=== PATIENT | male | born 1985 | race Caucasian/White ===

== ENCOUNTER 2024-12-17 10:47 | Inpatient (IN) | payer MEDICAID, SELFPAY ==
[2024-12-17 10:58] VITALS: BP 150/85; PULSE 88; TEMP 36.5; O2SAT 97; BMI 29.0
--- NOTE | 2024-12-17 10:58 | W.ED.PSYCHS ---
HPI - Psych General: Chief Complaint: Psychiatric Symptoms Stated Complaint: 96 Hold Time Seen by Provider: 12/17/24 10:50 Source: patient Mode of arrival: other (police) Limitations: no limitations History of Present Illness: Patient is a 39-year-old male who presents to ED today brought by police on a 96-hour hold for mental health evaluation. Patient states he is not sure why he is here who filed a 96-hour hold. He states he has had depression and suicidal ideations for quite some time. He has been reportedly seen in the crisis center and is made a safety plan with them to move out of his current residence and into his cousin's house and feels safe with this current plan. He states he has a history of PTSD but does not take medications for this. He reportedly wants to move to [place] in the near upcoming future. He does reportedly not get along with his parents and has made statements that he wants to if he has to continue to deal with them. He does have previous suicide attempts. I did not inquire about alcohol or drug use history. As previously stated, he arrives on a 96-hour hold with an affidavit from [facility] employee. According to the affidavit patient was severely agitated and did not respond to de-escalation mechanisms and made several statements including I want to end my life every day because I cannot get help and I have suicidal thoughts every day . He also was exhibiting paranoid type behavior. He made several homicidal statements stating that he wanted to crack the heads open of his family members and spoke about killing them. MD complaint: suicidal ideation Associated psychiatric symptoms: none Associated symptoms: Deny auditory hallucinations, visual hallucinations, depression, homicidal ideation or suicidal ideation Treatments prior to arrival: placed on mental health hold Related Data Allergies Allergy/AdvReac Type Severity Reaction Status Date / Time No Known Allergies Allergy Verified 12/17/24 11:01 Review of Systems Const: Denies: fever(s) or chills Card: Denies: chest pain, palpitations, lightheadedness or syncope Resp: Denies: dyspnea GI: Denies: abdominal pain, nausea, vomiting or diarrhea Skin/Breast: Denies: rash Neuro: Denies: headache(s) Psych: Reports: irritability; Denies: anxiety, depression, visual hallucinations, auditory hallucinations, suicidal ideation or homicidal ideation [facility] ED PFSH: Medical History Psychiatric care Physical Exam Const: COMMON NORMALS: no acute distress, patient oriented x3, alert and well nourished GENERAL APPEARANCE: cooperative and well kempt Resp: COMMON NORMALS: normal respiratory effort and clear to auscultation bilaterally AUSCULTATION: clear to auscultation bilaterally Cardio: COMMON NORMALS: regular rate and regular rhythm RATE: regular rate RHYTHM: regular rhythm Neuro: COMMON NORMALS: patient oriented x3 SENSORIUM/ORIENTATION: Yes alert Psych: COMMON NORMALS: mental status grossly normal, Normal thought process present, cooperative, normal affect, speech normal, activity/motor behavior normal and denies hallucinations APPEARANCE: Yes grossly normal and Yes well kempt ATTITUDE: Yes agitated ACTIVITY/MOTOR BEHAVIOR: Yes appropriate eye contact and No psychomotor agitation SPEECH: Yes normal speech MOOD & AFFECT: Yes euthymic mood THOUGHT PROCESS: Normal thought process present THOUGHT CONTENT: Yes Normal thought content present ATTENTION/CONCENTRATION: Yes attention grossly intact and Yes concentration grossly intact MEMORY/COGNITION: Yes memory grossly intact and Yes cognition grossly intact INSIGHT: Fair insight present (Psych) JUDGEMENT: Fair judgement present (Psych) Course Consultations: Consultation #1: Dr. Johnson-accepts to NPU Vital Signs: Vital signs: Vital Signs Temperature 97.7 F 12/17/24 10:58 Pulse Rate 88 12/17/24 10:58 Blood Pressure 150/85 12/17/24 10:58 Pulse Oximetry 97 12/17/24 10:58 Oxygen Delivery Me thod Room Air 12/17/24 10:58 [facility] - Psych Medical Decision Making Patient being admitted to NPU to Dr. Johnson. He is on a 96 hour hold. Medical Records I reviewed the patient's medical records. Lab Data I reviewed the patient's lab results. 12/17/24 11:17 12/17/24 11:17 Laboratory Results WBC 5.65 10^3/uL (3.29-11.43) 12/17/24 11:17 RBC 5.11 10^6/uL (3.85-5.65) 12/17/24 11:17 Hgb 16.30 g/dL (11.27-16.99) 12/17/24 11:17 Hct 48.3 % (37-53) 12/17/24 11:17 MCV 94.5 fl (82-101) 12/17/24 11:17 MCH 31.9 pg (27-33) 12/17/24 11:17 MCHC 33.7 g/dL (30-55) 12/17/24 11:17 RDW 11.8 % (12.1-15.1) L 12/17/24 11:17 Plt Count 202 10^3/cmm (157-399) 12/17/24 11:17 MPV 9.9 fL (7.4-10.4) 12/17/24 11:17 Neut % (Auto) 68.1 % 12/17/24 11:17 Lymph % (Auto) 25.3 % 12/17/24 11:17 [place] % (Auto) 4.6 % 12/17/24 11:17 Eos % (Auto) 1.1 % 12/17/24 11:17 Baso % (Auto) 0.5 % 12/17/24 11:17 Neut # (Auto) 3.85 10^3/uL (1.8-7.7) 12/17/24 11:17 Lymph # (Auto) 1.4 10^3/uL (0.8-4.8) 12/17/24 11:17 [place] # (Auto) 0.3 10^3/uL (0.2-0.9) 12/17/24 11:17 Eos # (Auto) 0.1 10^3/uL (0.0-0.8) 12/17/24 11:17 Baso # (Auto) 0.0 10^3/uL (0.0-0.1) 12/17/24 11:17 Nucleated RBC % (auto) 0 % 12/17/24 11:17 Nucleated RBCs # 0.0 /100WBC 12/17/24 11:17 Sodium 140 mmol/L (136-145) 12/17/24 11:17 Potassium 3.8 mmol/L (3.5-5.1) 12/17/24 11:17 Chloride 103 mmol/L (98-107) 12/17/24 11:17 Carbon Dioxide 24 mmol/L (22-29) 12/17/24 11:17 Anion Gap 16.8 (5-19) 12/17/24 11:17 BUN 9 mg/dL (6-20) 12/17/24 11:17 Creatinine 0.9 mg/dL (0.7-1.2) 12/17/24 11:17 GFR Calculation 95.0 mL/min (90-130) 12/17/24 11:17 Glucose 141 mg/dL (65-115) H 12/17/24 11:17 Calculated Osmolality 291 mOsm/kg (285-295) 12/17/24 11:17 Calcium 9.4 mg/dL (8.5-10.5) 12/17/24 11:17 Total Bilirubin 1.2 mg/dL (0.15-1.2) 12/17/24 11:17 AST 15 U/L (0-40) 12/17/24 11:17 ALT 20 U/L (0-41) 12/17/24 11:17 Alkaline Phosphatase 81 U/L (40-130) 12/17/24 11:17 Total Protein 7.2 g/dL (6.6-8.7) 12/17/24 11:17 Albumin 4.4 g/dL (3.5-5.2) 12/17/24 11:17 Globulin 2.8 g/dL (1.3-4.6) 12/17/24 11:17 Salicylates < 0.3 mg/dL (3-10) L 12/17/24 11:17 Acetaminophen < 5.0 ug/mL (10-30) L 12/17/24 11:17 Ethyl Alcohol < 10 mg/dL (0-10) 12/17/24 11:17 No radiology studies performed this visit Discharge Plan Discharge Patient Disposition: Admitted As Inpatient Clinical Impression: Suicidal ideation, Homicidal ideation, Involuntary commitment Condition: Stable Coding Level of Care Code 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
[2024-12-17 11:27] LABS: Basophils % 0.5 %; Eosinophils # 0.1 10^3/uL (0.0-0.8); Eosinophils % 1.1 %; Hematocrit 48.3 % (37-53); Lymphocytes # 1.4 10^3/uL (0.8-4.8); Lymphocytes % 25.3 %; Mean Corpuscular HGB Conc 33.7 g/dL (30-55); Mean Corpuscular Hemoglobin 31.9 pg (27-33); Mean Corpuscular Volume 94.5 fl (82-101); Mean Platelet Volume 9.9 fL (7.4-10.4); Monocytes # 0.3 10^3/uL (0.2-0.9); Monocytes % 4.6 %; Neutrophils # 3.85 10^3/uL (1.8-7.7); Neutrophils % 68.1 %; Nucleated Red Blood Cells % 0 %; Platelet Count 202 10^3/cmm (157-399); Red Blood Count 5.11 10^6/uL (3.85-5.65); Red Cell Distribution Width 11.8 % (12.1-15.1); White Blood Count 5.65 10^3/uL (3.29-11.43)
[2024-12-17 11:43] LABS: Alanine Aminotransferase 20 U/L (0-41); Albumin Level 4.4 g/dL (3.5-5.2); Alkaline Phosphatase 81 U/L (40-130); Anion Gap 16.8 (5-19); Aspartate Amino Transferase 15 U/L (0-40); Blood Urea Nitrogen 9 mg/dL (6-20); Calcium 9.4 mg/dL (8.5-10.5); Carbon Dioxide 24 mmol/L (22-29); Chloride 103 mmol/L (98-107); Creatinine Clr Calc Pharmacy 139.6477; Globulin 2.8 g/dL (1.3-4.6); Glucose 141 mg/dL (65-115); Osmolality Calculated 291 mOsm/kg (285-295); Potassium 3.8 mmol/L (3.5-5.1); Sodium 140 mmol/L (136-145); Total Bilirubin 1.2 mg/dL (0.15-1.2); Total Protein 7.2 g/dL (6.6-8.7)
[2024-12-17 11:47] LABS: Acetaminophen < 5.0 ug/mL (10-30); Alcohol Level < 10 mg/dL (0-10); Salicylate < 0.3 mg/dL (3-10)
[2024-12-17 12:12] LABS: Amphetamines Screen Urine Negative (Negative); Barbiturates Screen Urine Negative (Negative); Benzodiazepines Screen Urine Negative (Negative); Cocaine Screen Urine Negative (Negative); Opiate Screen Urine Negative (Negative); PCP Screen Urine Negative (Negative); THC Screen Urine Positive (Negative)
[2024-12-17 12:45] VITALS: BP 144/82; PULSE 73; O2SAT 97
[2024-12-17 13:05] VITALS: BP 130/91; PULSE 71; RESP 18; TEMP 36.8; O2SAT 98
[2024-12-17 14:00] VITALS: BP 131/97; PULSE 83; RESP 18; TEMP 36.9; O2SAT 97
[2024-12-17] MEDS: nicotine 2 mg Gum BUCCAL ×2 (14:03→21:00)
[2024-12-17] MEDS: hyDROXYzine 25 mg Capsule 50 MG PO (14:03)
[2024-12-17] MEDS: ibuprofen 600 mg Tablet PO (14:03)
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
--- NOTE | 2024-12-17 19:56 | PC.NURSE ---
96 hr rights reviewed with patient @1100 with assistance of [facility] labor relations officer Yefri. All education reviewed. Pt verbalized understanding to hold details. Pt copy left with patient. Pt provided water. No further verbalized needs
[2024-12-17] MEDS: trazodone 50 mg Tablet PO ×2 (21:00→22:29)
[2024-12-17] MEDS: haloperidol 5 mg Tablet PO (21:00)
[2024-12-17 21:01] VITALS: BP 136/101; PULSE 82; RESP 18; TEMP 36.7; O2SAT 97
[2024-12-18 06:00] VITALS: BP 102/58; PULSE 72; RESP 16; TEMP 36.6; O2SAT 96
[2024-12-18] MEDS: ibuprofen 600 mg Tablet PO (08:21)
[2024-12-18] MEDS: nicotine 2 mg Gum BUCCAL ×2 (08:23→20:09)
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
[2024-12-18] MEDS: hyDROXYzine 25 mg Capsule 50 MG PO ×2 (11:34→20:10)
[2024-12-18 14:00] VITALS: BP 117/75; PULSE 75; RESP 16; TEMP 36.7; O2SAT 97
[2024-12-18] MEDS: quetiapine 25 mg Tablet 50 MG PO (20:09)
[2024-12-18] MEDS: trazodone 50 mg Tablet PO (20:10)
[2024-12-18 20:27] VITALS: BP 133/87; PULSE 70; RESP 17; TEMP 36.3; O2SAT 99
--- NOTE | 2024-12-18 21:02 | PC.NURSE ---
IN BED RESTING. DENIES SI/HI AND AVH AT THIS TIME. DENIES PAIN. RATES ANXIETY AND DEPRESSION 04/15. VISTARIL 50 MG GIVEN ORDERED FOR ANXIETY. TRAZODONE 50 MG GIVEN FOR INSOMNIA. PT IS NOTED TO HAVE FLAT AFFECT AND DEPRESSED MOOD. SUPPORT VOICED.
[2024-12-19 06:00] VITALS: BP 118/75; PULSE 74; RESP 18; TEMP 36.5; O2SAT 98
[2024-12-19] MEDS: nicotine 2 mg Gum BUCCAL (11:03)
[2024-12-19] MEDS: hyDROXYzine 25 mg Capsule 50 MG PO (12:45)
[2024-12-19 13:00] VITALS: BP 118/75; PULSE 74; RESP 18; TEMP 36.5; O2SAT 98
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
== END 2024-12-19 16:17 | disposition home or self-care (01) | DRG 885 ==
LOC: ER 11:33 → NP 12:38
PROVIDERS: Admitting Provider Psychiatry & Neurology Psychiatry; Emergency Provider Physician Assistant; Family Provider Family Medicine; Visit Provider Psychiatry & Neurology Psychiatry
DX: F33.2 Major depressive disorder, recurrent severe without psychotic features (principal); R45.851 Suicidal ideations; F43.12 Post-traumatic stress disorder, chronic; R45.850 Homicidal ideations; F12.90 Cannabis use, unspecified, uncomplicated; Z72.0 Tobacco use
CPT/HCPCS: 36415; 80053; 80306; 80307; 85025; 97150; 97165; 99285

== ENCOUNTER → 2025-02-26 10:41 | Outpatient (BNVA) | payer OTHER, SELFPAY | PROVIDERS: Family Provider Family Medicine; Visit Provider Psychiatry & Neurology Psychiatry | DX: F33.2 Major depressive disorder, recurrent severe without psychotic features (principal); F43.12 Post-traumatic stress disorder, chronic; Z79.899 Other long term (current) drug therapy | CPT/HCPCS: 80061; 83036 ==

== ENCOUNTER 2025-10-28 12:50 | Emergency (ER) | payer MEDICAID, SELFPAY ==
[2025-04-29 11:39] VITALS: BP 129/89; BMI 29.1
[2025-10-28 12:56] VITALS: BP 111/76; PULSE 82; RESP 16; TEMP 36.7; O2SAT 96; BMI 29.0
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
--- NOTE | 2025-10-28 13:11 | W.ED.EXTPRO ---
HPI - Extremity Problem General: Chief complaint: Extremity Injury, Lower Stated complaint: right leg wound Time Seen by Provider: 10/28/25 13:10 Source: patient Mode of arrival: ambulatory Limitations: no limitations History of Present Illness: Patient is a 40-year-old male presents emergency department complaining of injury to right escalante earlier this morning around 0330. States that he was working in the [employer] and he tripped and believes he struck his right anterior escalante on a drain pipe, causing superficial puncture laceration with controlled bleeding at this time. His tetanus is not up-to-date. States that he has pain underlying the laceration and thinks he at least bruised his bone, and the pain radiates to the right posterior calf. Is able to ambulate without difficulty, vital stable he does not report any other injury at this time. MD Complaint: extremity pain Onset (ago): hour(s) Pain Consistency: constant Location: right and lower extremity (esaclante) Associated symptoms: Deny chest pain, fever(s) or rash Related Data Previous Rx's ?Medication ?Instructions ?Recorded fluoxetine 20 mg capsule (Prozac) 20 mg PO .morning #30 caps 04/11/25 fluoxetine 40 mg capsule 40 mg PO QAM #30 caps 07/16/25 quetiapine 25 mg tablet (Seroquel) 25 mg PO BEDTIME PRN insomnia #60 07/16/25 tabs Allergies Allergy/AdvReac Type Severity Reaction Status Date / Time No Known Allergies Allergy Verified 07/16/25 12:49 Review of Systems General: Reports: 10 or more systems reviewed and unremarkable except in HPI and below Const: Denies: fever(s) or chills Card: Denies: chest pain Resp: Denies: dyspnea GI: Denies: abdominal pain, nausea, vomiting or diarrhea Musc: Reports: extremity pain (right escalante); Denies: extremity swelling, joint pain, joint swelling, joint redness, joint warmth or limited range of motion Skin/Breast: Reports: skin tenderness and new lesions (laceration right escalante); Denies: rash Neuro: Denies: headache(s) [facility] ED PFSH: Medical History Major depressive disorder, recurrent severe without psychotic features Cannabis dependence Nicotine dependence due to vaping tobacco product Chronic post-traumatic stress disorder Psychiatric care Family History Other Cancer Depression Heart disease Social History Smoking and tobacco/nicotine status: current every day tobacco/nicotine user e-cigarettes E-Cigarette Details: e-cigarette and with nicotine E-cig/vape details: 20,000 takes about 3 - 4 weeks to go through it Quit status (tobacco/nicotine): not considering quitting Second hand smoke exposure: No Alcohol intake: current Alcohol intake frequency: few times a week Alcohol type: hard liquor Substance/Drug Use: current Substance/Drug use frequency: few times a week Adopted: No Caregiver/support person: No Lives independently: Yes Household members: family and none Housing: House Marital status: Number of children: 0 Highest education level completed: Some College, No Degree service: No Current occupational status: unemployed Pets and animals: No Leisure activites: art, games and reading Sexually active: No Do you think of yourself as: Straight/Heterosexual Current gender identity: Male Roya/Bahai: Other Special roya needs: No Agree to transfusion: Yes Physical Exam Const: COMMON NORMALS: no acute distress, patient oriented x3, no limitations, healthy appearing, alert and well nourished HENMT: COMMON NORMALS: normocephalic and atraumatic HEAD & SCALP: normocephalic and atraumatic Neck/C-Spine: COMMON NORMALS: full ROM, supple and no meningeal signs Extremity: COMMON NORMALS: full ROM, capillary refill normal, no joint enlargement and no clubbing, cyanosis or edema NARRATIVE EXTREMITY EXAM: Tender to palpation right anterior escalante, no bruising or swelling Neuro: COMMON NORMALS: patient oriented x3, moves all extremities, no focal motor deficits and no sensory deficits noted SENSORIUM/ORIENTATION: Yes alert MENINGEAL SIGNS: Yes no meningeal signs Skin: NARRATIVE SKIN EXAM: Small 1 cm superficial laceration right anterior escalante with controlled bleeding, no foreign body or contamination noted at this time Course Vital Signs: Vital signs: Vital Signs Temperature 98.1 F 10/28/25 12:56 Pulse Rate 82 10/28/25 12:56 Respiratory Rate 16 10/28/25 12:56 Blood Pressure 111/76 10/28/25 12:56 Pulse Oximetry 96 10/28/25 12:56 Oxygen Delivery Me thod Room Air 10/28/25 12:56 MDM - Extremity (Nontraumatic) Medical Decision Making Patient presented after injuring his right lower leg last night, believes that he struck his right escalante on a drain pipe. Presented with superficial laceration that is cleaned and Steri-Strip applied here, did not appear to require any further closure of sutures and patient stated he preferred Steri-Strips. The x-ray was negative for any underlying fracture suspect contusion here with the associated abrasive type laceration and his tetanus is updated for this purpose. Stable for discharge at this time with symptomatic therapy discussed. Lab Data Radiology Impressions Tibia/Fibula X-Ray 10/28/25 13:10 Impression: Negative for fracture. All radiology interpretation(s) finalized by discharge Discharge Plan Discharge Patient Disposition: Home Clinical Impression: Contusion of escalante of right lower leg, Abrasion Condition: Stable Prescriptions: No Action fluoxetine [Prozac] 20 mg capsule 20 mg PO .morning Qty: 30 3RF Rx Instructions: Take one capsule every morning fluoxetine 40 mg capsule 40 mg PO QAM Qty: 30 3RF Rx Instructions: Take one capsule every morning quetiapine [Seroquel] 25 mg tablet 25 mg PO BEDTIME PRN (Reason: insomnia) Qty: 60 3RF Rx Instructions: May take one to two tablets at bedtime as needed for sleep Discharge Orders: Discharge ED (Routine); Ordered 10/28/25 Ordered By: Ronaldo Mathias Patient Instructions: Patient Portal & Lan Instructions Activity Restrictions/Additional Instructions: Discharge Instructions Diagnosis: Contusion (bruise) of the right escalante with abrasion (scrape). X-ray showed no broken bones. What happened: You injured your right escalante, causing bruising and a scrape to the skin. The good news is that your X-ray did not show any fractures. Wound care: - Keep the wound clean. Gently wash the abrasion with clean tap water or soap and water once daily. - Keep the wound covered with a clean, non-stick bandage for the first 24-48 hours to protect it from dirt and bacteria. After 48 hours, you may leave it uncovered if it stays clean, or continue covering it if preferred. - Keep the wound moist. You may apply a thin layer of stbi-zal-afbzieb antibiotic ointment (such as bacitracin or Neosporin) to help prevent infection and promote healing. This also helps prevent scab formation. - You may get the wound wet after the first 24-48 hours. You can shower normally, but avoid scrubbing or soaking the wound. Managing pain and swelling: - Elevate your leg when sitting or lying down to reduce swelling. Prop your leg up on pillows so it is above the level of your heart. - Apply ice to the bruised area for 15-20 minutes at a time, several times a day for the first 2-3 days. Always wrap ice in a towel?never apply it directly to skin. - Take vlvi-clz-xknzdyv pain medication as needed, such as acetaminophen (Tylenol) or ibuprofen (Advil, Motrin), following the directions on the bottle. Activity: - Rest your leg for the next few days. Avoid strenuous activities or sports that could re-injure the area. - You may gradually return to normal activities as pain and swelling improve, typically over 5-7 days. - A work note has been provided for today. Watch for signs of infection: Contact your doctor or return to the emergency department if you develop any of these warning signs: - Increasing redness, warmth, or swelling around the wound - Red streaks extending from the wound - Pus or cloudy drainage from the wound - Increasing pain - Fever (temperature above 100.4?F or 38?C) - The wound does not seem to be healing after several days Tetanus vaccination: Your tetanus vaccination was updated today. You are now protected against tetanus. Follow-up: - Follow up with your primary care doctor in 5-7 days if the wound is not healing well or if you have any concerns. - Return sooner if you notice any signs of infection listed above. Stand Alone Forms: Work/School Release Print Language: Romanian Coding Level of Care Code ED [employer] for Rolando Martinez
[2025-10-28] MEDS: tetanus-dipt-pertussis 0.5 mL SDV IM (13:30)
[2025-10-28 14:04] VITALS: BP 128/78; PULSE 89; RESP 17; O2SAT 99
== END 2025-10-28 14:05 | disposition home or self-care (01) ==
PROVIDERS: Emergency Provider Physician Assistant
DX: S80.11XA Contusion of right lower leg, initial encounter (principal); F17.290 Nicotine dependence, other tobacco product, uncomplicated; W01.198A Fall on same level from slipping, tripping and stumbling with subsequent striking against other object, initial encounter
CPT/HCPCS: 73590; 90471; 90715; 99283